=== PATIENT | female | born 1995 | race Caucasian/White ===

== ENCOUNTER 2022-01-20 17:10 | Emergency (ER) | payer MEDICAID, SELFPAY ==
[2022-01-20 17:12] VITALS: BP 113/56; PULSE 102; RESP 16; TEMP 36.6; O2SAT 99; BMI 24.1
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
[2022-01-20 17:58] LABS: Appearance Urine CLEAR; Color Urine YELLOW; Glucose Urine UA NEG (NEG); Leukocyte Esterase Urine NEG (NEG); Nitrite Urine NEG (NEG); PH 6.5 (5.0-8.0); Urine Blood NEG (NEG); Urine Ketones NEG (NEG); Urine Protein NEG (NEG-TRACE)
[2022-01-20 18:09] LABS: COVID-19 Test Negative (Negative); IDNOW Serial# 16C4AD1C
[2022-01-20] MEDS: Multivitamin TABLET 1 TAB PO (18:12)
[2022-01-20] MEDS: Nicotine Polacrilex 2 MG GUM BUCCAL (18:12)
[2022-01-20 18:14] LABS: Amphetamine Screen Urine Not Detected (Not Detect); Barbiturates, Urine Not Detected (Not Detect); Benzodiazepines Screen Urine Not Detected (Not Detect); Cannabinoid Screen Urine Not Detected (Not Detect); Cocaine Screen Urine Not Detected (Not Detect); Fentanyl, urine Not Detected (Not Detect); Opiate Screen Urine Not Detected (Not Detect); Phencyclidine Screen Urine Not Detected (Not Detect)
[2022-01-20 19:37] LABS: MANUAL DIFF FLAG NO
[2022-01-20 19:42] LABS: Basophils Percent Auto 0.3 % (0-2); Eosinophils Absolute Auto 0.1 X10*3/uL (0.0-0.4); Eosinophils Percent Auto 0.5 % (0-4); Hematocrit 28.6 % (37.0-47.0); Hemoglobin 9.6 g/dl (12.0-16.0); Imm Gran Abs Auto 0.07 X10*3/uL (0.00-0.03); Imm Gran Pct Auto 0.7 % (0.0-0.4); Lymphocytes Absolute Auto 1.6 X10*3/uL (1.2-4.9); Lymphocytes Percent Auto 16.2 % (20-40); Mean Corpuscular HGB Conc 33.6 g/dl (31.0-35.0); Mean Corpuscular Hemoglobin 27.1 pg (27.0-33.0); Mean Corpuscular Volume 80.8 fL (80.0-98.0); Mean Platelet Volume 8.7 fL (9.4-12.3); Monocytes Absolute Auto 0.6 X10*3/uL (0.1-1.2); Monocytes Percent Auto 5.7 % (2-11); Neutrophils Absolute Auto 7.6 x10*3/uL (2.0-8.3); Neutrophils Percent Auto 76.6 % (45-73); Platelet Count 286 X10*3/uL (160-400); Red Blood Count 3.54 X10*6/uL (4.20-5.50); Red Cell Distribution Width 13.9 % (11.0-16.0); White Blood Count 9.9 X10*3/uL (4.8-10.8)
[2022-01-20] MEDS: Melatonin 3 MG TABLET 6 MG PO (19:48)
[2022-01-20 19:54] LABS: Ethanol < 10 mg/dL
[2022-01-20 19:58] LABS: Alanine Aminotransferase 13 U/L (0-31); Albumin Level 3.3 g/dL (3.5-5.0); Alkaline Phosphatase 60 U/L (39-117); Anion Gap 10 (12-20); Aspartate Amino Transferase 13 U/L (5-31); Bilirubin Total 0.2 mg/dL (0.0-1.0); Blood Urea Nitrogen 7 mg/dL (9-16); Calcium 8.7 mg/dL (8.4-10.2); Carbon Dioxide 24 mmol/L (22-29); Chloride 106 mmol/L (96-108); Creatinine Clr Calc Pharmacy 107.8; Estimated Glomerular Filt Rate > 60; Glucose Random 91 mg/dL (60-115); Potassium 3.6 mmol/L (3.3-5.1); Sodium 136 mmol/L (135-145); Total Protein 5.9 g/dL (6.5-8.0)
--- NOTE | 2022-01-20 21:11 | MHC.RECOVSUP ---
? Reason for consult:Recovery Support o ? ? ?Current location: [facility] o ? ? ?Identified substance use concern: Methamphetamine? ? ?Intervention: o Community resources provided o Harm reduction discussion ? Additional information:?I was able to connect with patient; she is a 26 year old mother, is currently and has a 6 year history of [place] to Methamphetamine. Patient recently moved from [place] because of her continuous drug use with the father of her child and found it too difficult to remain sober in that environment so she moved to [place] to be with her family. Patient also disclosed that she has an open DCF case in [place] and her child remains in their custody at this time. Patient describes tapering off the drug on her own and how she still is experiencing urges and anxiety. We reviewed harm reduction strategies along with suggests for community resources including [facility] and additional Recovery Support Centers out in the [place] area.
--- NOTE | 2022-01-20 22:02 | PC.NURSE ---
Pt's sister Tara [phone]
[2022-01-20] MEDS: Nicotine 21 MG PATCH.TD24 TRANSDERMA (22:23)
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
--- NOTE | 2022-01-21 07:31 | PC.NURSE ---
Patient slept through the night, no distress observed/reported, patient is cleared for d/c in the morning, vss, will continue to monitor.
== END 2022-01-21 07:49 | disposition still patient (30) ==
PROVIDERS: Nurse Practitioner Family; Emergency Provider Emergency Medicine Emergency Medical Services
DX: O99.322 Drug use complicating pregnancy, second trimester (principal); F19.10 Other psychoactive substance abuse, uncomplicated; O99.342 Other mental disorders complicating pregnancy, second trimester; Z3A.24 24 weeks gestation of pregnancy; Z20.822 Contact with and (suspected) exposure to COVID-19
CPT/HCPCS: 80053; 80307; 81003; 82077; 85025; 87635; 99284; 99285